=== PATIENT | female | born 1985 | race Caucasian/White ===

== ENCOUNTER 2017-02-03 20:53 | Emergency (ER) | payer OTHER ==
[~2017-02-03] VITALS: Ht 170.2 cm; Wt 68.4 kg
[~2017-02-03 20:53] MED LIST: AMITIZA8 MICROGRA PO; BUSPAR15 MG PO; BUSPIRONE HCL15 MG PO; Bentyl PO; Buspar PO; CELEXA10 MG PO; Colace PO; ELMIRON100 MG PO; Elmiron PO; Feosol PO; HYDROCODON-ACE1 EAC7 PO; IBUPROFEN600 MG PO; MACROBID100 MG PO; MACRODANTIN25 MG PO; MYRBETRIQ25 MG PO; Motrin PO; NAPROSYN500 MG PO; PHENERGAN25 MG PR; PRISTIQ100 MG; PROMETHAZINE HC25 M1 PO; PROVENTIL,200 INHALA IH; Percocet 5/325,Endoc PO; Protonix PO; REGLAN10 MG PO; TYLENOL WITH C1 EACH PO; ULTRAM50 MG PO; Vicodin,Norco 5/325 PO; ZOFRAN ODT4 MG PO; ZOFRAN4 MG PO; oxyCODONE PO
[2017-02-03 21:24] LABS: HEMATOCRIT 41.9 % (36.0-46.0); MCH 28.4 PG (29.0-34.0); MCHC 33.2 G/DL (30.0-36.0); MCV 85.7 FL (83-99); MEAN PLAT.VOLUME 9.7 uM^3 (9.5-12.4); PLATELET COUNT 331 K/uL (156-360); RBC DIS.WIDTH-CV 12.8 % (11.8-14.6); RBC DIS.WIDTH-SD 39.8 % (39-53); RED BLOOD COUNT 4.89 M/uL (3.80-5.20); WHITE BLOOD COUNT 8.7 K/uL (4.1-10.2)
[2017-02-03 21:41] LABS: CHLORIDE 109 mEq/L (99-109); POTASSIUM 4.4 mEq/L (3.7-5.4); SODIUM 142 mEq/L (136-147)
[2017-02-03 21:43] LABS: GLUCOSE 94 mg/dL (70-99)
[2017-02-03 21:44] LABS: ANION GAP 7 MEQ/L (2-14)
[2017-02-03 21:45] LABS: TOTAL BILIRUBIN 0.4 mg/dL (0.0-1.0)
[2017-02-03 21:47] LABS: ALKALINE PHOSPHATASE 47 IU/L (3-129); GFR ESTIMATE (CALCULATED) > 59 mL/min/
[2017-02-03 21:48] LABS: UREA NITROGEN (BUN) 10 mg/dL (9-23)
[2017-02-03 21:48] LABS: ADD MIUA? NO; BILIRUBIN NEGATIVE; BLOOD NEGATIVE; COLOR YELLOW ((YELLOW)); GLUCOSE (STRIP) NEGATIVE; KETONES NEGATIVE; LEUKOCYTES NEGATIVE; NITRITE NEGATIVE; PROTEIN (STRIP) NEGATIVE; SPECIFIC GRAVITY 1.015 (1.000-1.030); UCUL ADDED? NO; UROBILINOGEN 0.2 MG/DL (0.2-1.0)
[2017-02-03 21:56] LABS: QUANTITATIVE HCG < 4.0 MIU/ML
[2017-02-04 00:02] LABS: LIPASE 419 U/L (1.0-51.0)
[2017-02-04] MEDS ORDERED: NAPROXEN500 MG PO (01:29)
[2017-02-04] MEDS ORDERED: ZOFRAN ODT4 MG PO (01:29)
[2017-02-04 01:52] VITALS: BP 119/77
== END 2017-02-04 01:57 | disposition home or self-care (01) ==
LOC: EME 20:53
DX: N83.201 Unspecified ovarian cyst, right side (principal); R11.0 Nausea; Z90.710 Acquired absence of both cervix and uterus; Z90.49 Acquired absence of other specified parts of digestive tract
CPT/HCPCS: 74177; 76856; 80053; 81003; 83690; 84702; 85027; 99281; 99285; J1885; J7030

== ENCOUNTER 2017-02-09 15:58 | Emergency (ER) | payer OTHER ==
[~2017-02-09] VITALS: Ht 167.6 cm; Wt 66.8 kg
[~2017-02-09 15:58] MED LIST changes: +NAPROXEN500 MG PO
[2017-02-09 16:25] LABS: HEMATOCRIT 47.6 % (36.0-46.0); MCH 28.5 PG (29.0-34.0); MCHC 33.2 G/DL (30.0-36.0); MCV 85.9 FL (83-99); MEAN PLAT.VOLUME 9.8 uM^3 (9.5-12.4); PLATELET COUNT 301 K/uL (156-360); RBC DIS.WIDTH-CV 12.4 % (11.8-14.6); RBC DIS.WIDTH-SD 39.1 % (39-53); RED BLOOD COUNT 5.54 M/uL (3.80-5.20); WHITE BLOOD COUNT 7.7 K/uL (4.1-10.2)
[2017-02-09 16:37] LABS: CHLORIDE 104 mEq/L (99-109); POTASSIUM 4.4 mEq/L (3.7-5.4); SODIUM 140 mEq/L (136-147)
[2017-02-09 16:39] LABS: GLUCOSE 76 mg/dL (70-99)
[2017-02-09 16:40] LABS: ANION GAP 13 MEQ/L (2-14)
[2017-02-09 16:41] LABS: TOTAL BILIRUBIN 0.4 mg/dL (0.0-1.0)
[2017-02-09 16:42] LABS: ALKALINE PHOSPHATASE 53 IU/L (3-129)
[2017-02-09 16:43] LABS: GFR ESTIMATE (CALCULATED) > 59 mL/min/
[2017-02-09 16:44] LABS: UREA NITROGEN (BUN) 14 mg/dL (9-23)
[2017-02-09 16:46] LABS: LIPASE 76 U/L (1.0-51.0)
[2017-02-09 16:51] LABS: QUANTITATIVE HCG < 4.0 MIU/ML
[2017-02-09 17:25] LABS: ADD MIUA? NO; BILIRUBIN NEGATIVE; BLOOD NEGATIVE; COLOR YELLOW ((YELLOW)); GLUCOSE (STRIP) NEGATIVE; KETONES 5; LEUKOCYTES NEGATIVE; NITRITE NEGATIVE; PROTEIN (STRIP) 30; SPECIFIC GRAVITY 1.019 (1.000-1.030); UCUL ADDED? NO; UROBILINOGEN 0.2 MG/DL (0.2-1.0)
[2017-02-09] MEDS ORDERED: ZOFRAN ODT4 MG PO (19:53)
[2017-02-09] MEDS ORDERED: ULTRACET1 TABLET PO (19:53)
[2017-02-09 20:17] VITALS: BP 126/73
== END 2017-02-09 20:18 | disposition home or self-care (01) ==
LOC: EME 15:58
DX: R10.31 Right lower quadrant pain (principal); R11.2 Nausea with vomiting, unspecified; E86.0 Dehydration
CPT/HCPCS: 76705; 80053; 81003; 83690; 84702; 85027; 93005; 99281; 99284; J1885

== ENCOUNTER 2017-02-21 08:56 | Day surgery (SDC) | payer OTHER ==
[~2017-02-21] VITALS: Ht 167.6 cm; Wt 67.0 kg
[~2017-02-21 08:56] MED LIST changes: +ACETAMINOPHN-T1 EACH PO; +COLACE100 MG PO; +ULTRACET1 TABLET PO
[2017-02-21 09:39] VITALS: BP 125/74
[2017-02-21 09:41] LABS: POINT-OF-CARE METER ID UU13113694
[2017-02-21] MEDS ORDERED: IBUPROFEN800 MG PO (13:12)
[2017-02-21] MEDS ORDERED: ENDOCET 5-3251 EACH PO (13:12)
[2017-02-21 14:25] VITALS: BP 121/61
[2017-02-21 15:25] VITALS: BP 105/69
== END 2017-02-21 15:30 | disposition home or self-care (01) ==
LOC: SDC 08:56
PROVIDERS: Obstetrics & Gynecology
PROC: 0UT54ZZ Resection of Right Fallopian Tube, Percutaneous Endoscopic Approach (ICD-10-PCS; principal; 2017-02-21)
PROC: 0UT04ZZ Resection of Right Ovary, Percutaneous Endoscopic Approach (ICD-10-PCS; principal; 2017-02-21)
PROC: 0T788DZ Dilation of Bilateral Ureters with Intraluminal Device, Via Natural or Artificial Opening Endoscopic (ICD-10-PCS; 2017-02-21)
DX: N83.201 Unspecified ovarian cyst, right side (principal); N73.6 Female pelvic peritoneal adhesions (postinfective); N94.10 Unspecified dyspareunia; N30.10 Interstitial cystitis (chronic) without hematuria; F41.9 Anxiety disorder, unspecified; J45.909 Unspecified asthma, uncomplicated; R63.5 Abnormal weight gain; R53.83 Other fatigue; Z82.5 Family history of asthma and other chronic lower respiratory diseases; Z82.49 Family history of ischemic heart disease and other diseases of the circulatory system; Z82.3 Family history of stroke; Z80.8 Family history of malignant neoplasm of other organs or systems
CPT/HCPCS: 82948; 88305; J0330; J1100; J1170; J1200; J1885; J2250; J2405; J2710; J3010

== ENCOUNTER 2017-07-05 11:02 | Emergency (ER) | payer OTHER ==
[~2017-07-05] VITALS: Ht 167.6 cm; Wt 70.0 kg
[~2017-07-05 11:02] MED LIST changes: +ENDOCET 5-3251 EACH PO; +IBUPROFEN800 MG PO
[2017-07-05 11:47] LABS: HEMATOCRIT 46.8 % (36.0-46.0); MCH 28.7 PG (29.0-34.0); MCHC 32.7 G/DL (30.0-36.0); MCV 87.6 FL (83-99); MEAN PLAT.VOLUME 10.3 uM^3 (9.5-12.4); PLATELET COUNT 345 K/uL (156-360); RBC DIS.WIDTH-CV 12.1 % (11.8-14.6); RBC DIS.WIDTH-SD 38.9 % (39-53); RED BLOOD COUNT 5.34 M/uL (3.80-5.20)
[2017-07-05 11:58] LABS: CHLORIDE 104 mEq/L (99-109); POTASSIUM 4.5 mEq/L (3.7-5.4); SODIUM 138 mEq/L (136-147)
[2017-07-05 12:00] LABS: GLUCOSE 87 mg/dL (70-99)
[2017-07-05 12:01] LABS: ANION GAP 8 MEQ/L (2-14)
[2017-07-05 12:04] LABS: GFR ESTIMATE (CALCULATED) > 59 mL/min/
[2017-07-05 12:05] LABS: UREA NITROGEN (BUN) 11 mg/dL (9-23)
[2017-07-05 15:24] VITALS: BP 119/68
== END 2017-07-05 15:25 | disposition home or self-care (01) ==
LOC: EME 11:02
DX: G43.909 Migraine, unspecified, not intractable, without status migrainosus (principal); J45.909 Unspecified asthma, uncomplicated; F41.9 Anxiety disorder, unspecified; Z88.2 Allergy status to sulfonamides; Z88.8 Allergy status to other drugs, medicaments and biological substances
CPT/HCPCS: 71020; 80048; 85027; 93005; 99281; 99284; J1885; J2765

== ENCOUNTER → 2018-03-04 | Outpatient (CLI) | payer OTHER | END | disposition home or self-care (01) | LOC: EKG 13:39 | DX: I05.8 Other rheumatic mitral valve diseases (principal) | CPT/HCPCS: 93306 ==